=== PATIENT | male | born 1940 | race Caucasian/White ===

== ENCOUNTER 2017-01-01 07:07 | Day surgery (SDC) | payer MEDICARE, BC ==
[~2017-01-01 07:07] MED LIST: ACET-822 PO; ALPR-323 PO; ALPR0.5T8 PO; AMIN1TAB PO; AMIT25TA9 PO; ASPI-991 PO; CHON250C PO; DIPH1TAB70 PO; DIPH25CA83 PO; ERGO400C PO; FERR1TAB24 PO; FINA5TAB11 PO; FLAX100031 PO; GABA-536 PO; GLIP2.5T3 PO; GLUC1500 PO; HYDR25TA4 PO; LIDO700A TP; LIRA0.6P SQ; MELA300T PO; METF750T2 PO; MULT-70 PO; NAPR220C46 PO; NIAC500T5 PO; OMEG1CAP PO; OMEP20TA68 PO; OXYC1TAB72 PO; PANT40TA2 PO; PROC10TA29 PO; RAMI10CA PO; SIMV40TA5 PO; TADA20TA PO; TAMS0.4C34 PO; UBID100C26 PO; ZOLP10TA2 PO; [UNRECOGNIZED DRUG - CODE] PO
[2017-01-01] MEDS ORDERED: LIDOCAINE HCL/PF 1% 30 ML SDV ONE (07:18)
[2017-01-01] MEDS ORDERED: IV SET PRIMARY 1 EA INFUS.SET MC ONE (07:43)
[2017-01-01] MEDS ORDERED: NEEDLELESS EST SET LARGE BORE 1 EA INFUS.SET MC ONE (07:43)
[2017-01-01] MEDS ORDERED: SECONDARY IV SET 1 EA INFUS.SET MC ONE (07:43)
[2017-01-01] MEDS ORDERED: CEFAZOLIN SODIUM/DEXTROSE,ISO 50 ML IV ONE (07:43)
[2017-01-01] MEDS ORDERED: IV NS 0.9% 1,000 ML ONE (07:43)
[2017-01-01] MEDS ORDERED: FENTANYL PF 100MCG/2ML AMPUL ONE (07:53)
[2017-01-01] MEDS ORDERED: MIDAZOLAM HCL 2 MG/2ML VIAL ONE (07:53)
[2017-01-01] MEDS ORDERED: methylPREDNISolone ACETATE 80 MG/ML VIAL ONE (08:11)
== END 2017-01-01 10:40 ==
LOC: DS 07:07
PROVIDERS: ATTEND Specialist
DX: S83.282A Other tear of lateral meniscus, current injury, left knee, initial encounter (principal); S83.242A Other tear of medial meniscus, current injury, left knee, initial encounter; X58.XXXA Exposure to other specified factors, initial encounter; Y93.89 Activity, other specified; Y92.89 Other specified places as the place of occurrence of the external cause; Y99.8 Other external cause status; M94.262 Chondromalacia, left knee; M65.862 Other synovitis and tenosynovitis, left lower leg
CPT/HCPCS: 82962-TC; 88304-TC; 88305-TC; 88311-TC; A4217; A6253; J0690; J1040; J2250; J3010; J3490; J7030

== ENCOUNTER → 2017-09-08 | Day surgery (SDC) | payer MEDICARE, BC | END | disposition home or self-care (01) | LOC: DS 05:54 | PROVIDERS: ATTEND Specialist | DX: M65.861 Other synovitis and tenosynovitis, right lower leg (principal); M24.661 Ankylosis, right knee; Z96.651 Presence of right artificial knee joint; G47.30 Sleep apnea, unspecified; E78.5 Hyperlipidemia, unspecified; E11.42 Type 2 diabetes mellitus with diabetic polyneuropathy; I70.209 Unspecified atherosclerosis of native arteries of extremities, unspecified extremity; M23.41 Loose body in knee, right knee | CPT/HCPCS: 29873; 29876; 29884; 82962; 88304; 88305; 88311; A4217; A6253; A6402; J0690 ×2; J1100 ×2; J2405 ×2; J3490 ×5; Z7610 ==

== ENCOUNTER 2019-06-15 05:00 | Day surgery (SDC) | payer MEDICARE, BC ==
[~2019-06-15] VITALS: Ht 185.4 cm; Wt 111.1 kg
[~2019-06-15 05:00] MED LIST changes: +ASPI-1152 PO; -ASPI-991 PO; -GLUC1500 PO; +GLUC15006 PO; +MULT-594 PO; -MULT-70 PO; -NAPR220C46 PO; +NAPR220C61 PO; +OMEP20TA5 PO; -OMEP20TA68 PO; +OXYC-121 PO; -OXYC1TAB72 PO; -RAMI10CA PO; +RAMI10CA69 PO; -UBID100C26 PO; +UBID100C45 PO
--- NOTE | 2019-06-15 05:15 | NUR ---
RECEIVED PATIENT IN STABLE CONDITION. AMBULATORY WITH CRUTCHES. NO C/O PAIN OR DISCOMFORT. A/O X4. PATIENT ADMITTED FOR SCHEDULED RIGHT KNEE ARTHROTOMY. ALL CONSENTS SIGNED. NPO SINCE 1999 LAST NIGHT. LFA #[address] AND TOLERATED WELL. NO ACTIVE BLEEDING NOTED. BED IN LOW LOCK SETTING. ROOM FREE OF CLUTTER AND BELONGINGS KEPT NEAR BEDSIDE.
[2019-06-15 05:30] VITALS: BP 115/76
--- NOTE | 2019-06-15 06:10 | NUR ---
PATIENT TAKEN TO O.R. FOR SCHEDULED RIGHT KNEE ARTHROTOMY
[2019-06-15] MEDS ORDERED: BACITRACIN 50000 UNITS/VIAL ONE (06:17)
[2019-06-15] MEDS ORDERED: ANESTHESIA TRAY IN PYXIS 1 EA TRAY MC ONE (06:17)
[2019-06-15] MEDS ORDERED: FENTANYL PF 250MCG/5ML AMPUL ONE (06:38)
[2019-06-15] MEDS ORDERED: MIDAZOLAM HCL 2 MG/2ML VIAL ONE (06:38)
[2019-06-15] MEDS ORDERED: ROCURONIUM BROMIDE 50 MG/5 ML ONE (06:39)
[2019-06-15] MEDS ORDERED: FAMOTIDINE/PF INJ 20 MG/2 ML VIAL IV ONE (06:39)
[2019-06-15] MEDS ORDERED: BUPIVACAINE 0.5 % PF 150 MG/30 ML VIAL ONE (07:28)
--- NOTE | 2019-06-15 07:34 | NUR ---
RN NOTE REPORT RECEIVED FROM KAYDEN MEDINA AT THIS TIME, INFORMED BY HAWK RN THAT PT IS CURRENTLY IN THE O.R.
[2019-06-15] MEDS ORDERED: MELA3TAB PO (08:02)
[2019-06-15] MEDS ORDERED: FLUT16SP NS (08:02)
[2019-06-15] MEDS ORDERED: ANAS1TAB8 PO (08:02)
[2019-06-15] MEDS ORDERED: TEST200V3 IM (08:02)
[2019-06-15] MEDS ORDERED: NIAC500T2 PO (08:02)
[2019-06-15] MEDS ORDERED: ALPR1TAB7 PO (08:02)
[2019-06-15] MEDS ORDERED: ROSU10TA29 PO (08:02)
[2019-06-15] MEDS ORDERED: CHOL20004 PO (08:02)
[2019-06-15] MEDS ORDERED: MAGN500C16 PO (08:02)
[2019-06-15] MEDS ORDERED: SIME180C47 PO (08:02)
[2019-06-15] MEDS ORDERED: NAPR220T66 PO (08:02)
[2019-06-15] MEDS ORDERED: ASPI-605 PO (08:02)
[2019-06-15] MEDS ORDERED: OXYC-121 PO (08:02)
[2019-06-15] MEDS ORDERED: TEMA15CA PO (08:02)
[2019-06-15] MEDS ORDERED: DICY10AM IM (08:02)
[2019-06-15] MEDS ORDERED: PROC-11 PO (08:02)
--- NOTE | 2019-06-15 08:42 | NUR ---
RN NOTE PT BROUGHT UP FROM THE OR AT THIS TIME VIA GURNEY, A/O X4 BREATHING EVEN AND UNLABORED ON 2L VIA NC, NO S/S OF ANY DISTRESS OR PAIN NOTED AT THIS TIME, IS IS PATENT AND INTACT, VS ARE BP 123/77, PULSE 78, O2 WAS 96%, TEMP 97.5, RR 18. PER SURGEON OKAY TO D/C TODAY, SAFETY PRECAUTIONS IN PLACE, CALL LIGHT WITHIN REACH, WILL MONITOR ACCORDINGLY
[2019-06-15 08:45] VITALS: BP 123/77
--- NOTE | 2019-06-15 10:28 | NUR ---
DISCHARGE NOTE PT WAS D/C AT THIS TIME IN MEDICALLY STABLE CONDITION BACK HOME S/P RIGHT KNEE ARTHOTOMY, LEFT A/O X4 BREATHING EVEN AND UNLABORED ON RA WITH NO COMPLAINTS OR S/S OF ANY DISTRESS. IV AND ID BAND WERE REMOVED. SKIN WAS NOTED TO BE DRY AND INTACT. ALL D/C PAPERWORK, EXITCARE, AND BELONGING LIST WERE SIGNED AND DISCUSSED BY THE PATIENT, HOWEVER HE REFUSED TO TAKE ANY OF THE PAPERWORK STATING HE WOULD JUST THROW IT AWAY SO HE DOES NOT NEED IT. ALL NEEDS WERE ATTENDED TO DURING HIS STAY. HE WAS TAKEN DOWN BY ME VIA WHEELCHAIR WHERE HE LEFT IN A PRIVATE CAR WITH HIS SISTER ESTEFANIA.
== END 2019-06-15 16:00 | disposition home or self-care (01) ==
LOC: DS 05:00 → UNDOADMIN 05:09 → MED 05:09 → UNDODISIN 10:15 → DS 16:00
PROVIDERS: ATTEND Specialist
DX: S82.091K Other fracture of right patella, subsequent encounter for closed fracture with nonunion (principal); M65.861 Other synovitis and tenosynovitis, right lower leg; I10 Essential (primary) hypertension; E11.9 Type 2 diabetes mellitus without complications; G47.33 Obstructive sleep apnea (adult) (pediatric); E78.5 Hyperlipidemia, unspecified; K58.2 Mixed irritable bowel syndrome; M19.90 Unspecified osteoarthritis, unspecified site; Z79.84 Long term (current) use of oral hypoglycemic drugs; Z79.82 Long term (current) use of aspirin; Z79.899 Other long term (current) drug therapy; Z98.890 Other specified postprocedural states; Z90.49 Acquired absence of other specified parts of digestive tract; Z96.651 Presence of right artificial knee joint; Z98.49 Cataract extraction status, unspecified eye; Z96.0 Presence of urogenital implants; X58.XXXD Exposure to other specified factors, subsequent encounter
CPT/HCPCS: 27334; 27350; 36415; 86850; 87081; 88305; 88311; 97116; 97161; 97530; A4217; A6253; J0690; J2250; J2405; J2704; J2710; J2765; J3010; J3490 ×3; G0378